=== PATIENT | female | born 1980 | race Caucasian/White ===

== ENCOUNTER 2022-11-08 05:33 | Emergency (ER) | payer MEDICAID ==
[~2022-11-08] VITALS: Ht 157.5 cm; Wt 63.0 kg
[2022-11-08] MEDS ORDERED: SODIUM CHLORIDE 0.9% 1,000 ML IV ONE ×3 (05:45→09:30)
[2022-11-08] MEDS ORDERED: ONDANSETRON HCL 4MG/2ML INJ IV STA (05:45)
[2022-11-08 06:46] LABS: HEMATOCRIT. 32.8 % (36.0-48.0); HEMOGLOBIN. 10.7 g/dL (12.0-16.0); MEAN CORPUSCULAR HEMOGLOBIN 26.7 pg (28.0-32.0); MEAN CORPUSCULAR VOLUME 81.7 fL (81.0-99.0); MEAN PLATELET VOLUME 9.6 fl (7.4-10.4); PLATELET 241 x1000/uL (130-400); RED BLOOD CELL COUNT 4.01 mill/uL (4.2-5.4)
[2022-11-08 06:54] LABS: CHLORIDE 112 mEq/L (98-107)
[2022-11-08 07:02] LABS: PROTHROMBIN TIME 10.9 sec (9.6-11.0)
[2022-11-08 07:05] LABS: ETHANOL BLOOD < 10 mg/dL
[2022-11-08 07:39] LABS: CLARITY URINE CLEAR (CLEAR); COLOR URINE YELLOW (YELLOW); KETONES URINE 1+ (NEGATIVE); LEUKOCYTE ESTERASE URINE NEGATIVE (NEGATIVE); NITRITE URINE NEGATIVE (NEGATIVE); OCCULT BLOOD URINE NEGATIVE (NEGATIVE); PH URINE 5.5 (4.5-8.0); PROTEIN URINE 1+ (NEGATIVE); SPECIFIC GRAVITY URINE 1.024 (1.005-1.030); UROBILINOGEN URINE 0.2 E.U./dL (0.2-1.0)
[2022-11-08 08:00] VITALS: BP 91/53
[2022-11-08 08:14] LABS: *AMPHETAMINES SCREEN URINE NEGATIVE (NEGATIVE); *BARBITURATES SCREEN URINE NEGATIVE (NEGATIVE); *BENZODIAZEPINES SCREEN URINE NEGATIVE (NEGATIVE); *COCAINE SCREEN URINE NEGATIVE (NEGATIVE); CANNABINOID URINE SCREEN NEGATIVE (NEGATIVE); METHADONE URINE SCREEN NEGATIVE (NEGATIVE); OPIATES URINE SCREEN NEGATIVE (NEGATIVE); PHENCYCLIDINE URINE SCREEN NEGATIVE (NEGATIVE)
[2022-11-08 08:21] LABS: HCG SCREEN NEGATIVE
[2022-11-08] MEDS ORDERED: TETANUS, DIPHTHERIA, PERTUSSIS VAC/PF 0.5ML (>10YR OLD) IM ONE (08:45)
[2022-11-08] MEDS ORDERED: IOHEXOL-300 100 ML BOTTLE ONE (09:04)
[2022-11-08 09:20] LABS: PLATELET ESTIMATE NORMAL
== END 2022-11-08 13:05 | disposition home or self-care (01) ==
LOC: ER 05:42
DX: R55 Syncope and collapse (principal); E86.0 Dehydration; R19.7 Diarrhea, unspecified; Z20.822 Contact with and (suspected) exposure to COVID-19
CPT/HCPCS: 36415; 70450; 70486; 73562; 74177; 80053; 80305; 80320; 81003; 81025; 83690; 84484; 84703; 85025; 85610; 86850; 86900; 86901; 87426; 90471; 90715; 93005; 96361; 96374; 99285; C9803; J2405; J7030; Q9967; Z7610; G0480